=== PATIENT | female | born 1980 | race Two or more races ===

== ENCOUNTER 2021-01-20 13:53 | Emergency (ER) | payer MEDICAID, OTHER ==
[~2021-01-20] VITALS: Ht 134.6 cm; Wt 81.6 kg
[2021-01-20 13:54] VITALS: BP 180/107
[2021-01-20] MEDS ORDERED: cloNIDine HCL 0.1 MG TAB PO ONE (15:00)
== END 2021-01-20 16:14 | disposition home or self-care (01) ==
LOC: ER 13:53
DX: L03.011 Cellulitis of right finger (principal); I10 Essential (primary) hypertension

== ENCOUNTER 2021-02-28 17:40 | Emergency (ER) | payer MEDICAID ==
[~2021-02-28] VITALS: Ht 134.6 cm; Wt 72.6 kg
[2021-02-28 17:41] VITALS: BP 137/86
[2021-02-28 18:13] LABS: Eosinophils # (auto) 0.1 10 ^3/uL (0-0.8); Monocytes # (auto) 0.7 10 ^3/uL (0-1.3); Neutrophils # (auto) 7.4 10 ^3/uL (1.6-8.6)
[2021-02-28 18:14] LABS: Basophils # (auto) 0 10 ^3/uL (0-0.2); Basophils % (auto) 0.4 % (0.0-2.0); Lymphocytes # (auto) 1.9 10 ^3/uL (0.4-5.4); Lymphocytes % (auto) 18.9 % (10.0-50.0); Mean Corpuscular Hemoglobin 26.2 pg (28.0-32.0); Mean Corpuscular Hgb Conc. 33.4 g/dL (32.0-36.0); Mean Corpuscular Volume 78.5 fL (80.0-100.0); Neutrophils % (auto) 72.7 % (37.0-80.0); Platelet Count (auto) 387 10^3/uL (140-450); Red Blood Cells 4.96 10^6/uL (4.0-5.20); White Blood Cell 10.1 10^3/uL (4.4-10.8)
[2021-02-28 18:30] LABS: BUN/Creatinine Ratio 11.4; Calcium 8.3 mg/dL (8.5-10.1)
[2021-02-28 18:41] LABS: Potassium 2.9 mmol/L (3.5-5.1)
[2021-02-28] MEDS ORDERED: POTASSIUM CHL 20 Meq TABLET PO ONE (19:00)
== END 2021-02-28 19:09 | disposition home or self-care (01) ==
LOC: ER 17:40
DX: K52.9 Noninfective gastroenteritis and colitis, unspecified (principal); I10 Essential (primary) hypertension
CPT/HCPCS: 36415; 80048; 85025